=== PATIENT | male | born 1960 | race Caucasian/White ===

== ENCOUNTER 2021-06-22 19:35 | Inpatient (IN) | payer OTHER ==
[2021-06-23 01:52] VITALS: BMI 27.1
[2021-06-23] MEDS ORDERED: MAGNESIUM CITRATE 300 ML BOTTLE PO PRN (02:36)
[2021-06-23] MEDS ORDERED: MAG HYDROX/AL HYDROX/SIMETH 30 ML UNIT-DOSE CUP PO PRN (02:36)
[2021-06-23] MEDS ORDERED: diazePAM 5 MG TABLET PO ONE (02:36)
[2021-06-23] MEDS ORDERED: NICOTINE POLACRILEX 4 MG GUM BUC PRN (02:36)
[2021-06-23] MEDS ORDERED: MAGNESIUM HYDROX 2400MG/30ML ORAL SUSPENSION 30 ML CUP PO PRN (02:36)
[2021-06-23] MEDS ORDERED: ACETAMINOPHEN 325 MG TABLET (FP) PO PRN ×2 (02:36)
[2021-06-23] MEDS ORDERED: NICOTINE 10 MG CARTRIDGE (INHALER) IH PRN (02:36)
[2021-06-23] MEDS ORDERED: ONDANSETRON *ODT* 4 MG TABLET SL PRN (02:36)
[2021-06-23] MEDS ORDERED: IBUPROFEN 400 MG TABLET (FP) PO PRN (02:36)
[2021-06-23] MEDS ORDERED: MENTHOL/PHENOL 1 EACH UD MM PRN (02:36)
[2021-06-23] MEDS ORDERED: BISMUTH SUBSALICYLATE 524 MG/30 ML PO PRN (02:36)
[2021-06-23] MEDS ORDERED: hydrOXYzine PAMOATE 25 MG CAPSULE (FP) PO ONE (06:21)
[2021-06-23] MEDS: hydrOXYzine PAMOATE 25 MG CAPSULE (FP) PO SCH ×5 (06:25→22:16)
[2021-06-23] MEDS ORDERED: IBUPROFEN 400 MG TABLET (FP) PO ONE (10:14)
[2021-06-23] MEDS: LISINOPRIL 10 MG TABLET PO SCH (10:50)
[2021-06-23] MEDS: diazePAM 5 MG TABLET PO PRN (10:50)
[2021-06-23] MEDS: METHOCARBAMOL 500 MG TABLET PO PRN (10:50)
[2021-06-23] MEDS: PRENATAL VITAMINS W/ FOLIC ACID TABLET (FP) PO SCH (10:51)
[2021-06-23] MEDS: NICOTINE 21 MG/24 HOURS TOPICAL PATCH TD SCH (10:56)
[2021-06-23 11:11] LABS: HEMATOCRIT 39.3 % (35.4-49); HEMOGLOBIN 13.4 GM/dL (11.7-16.9); MCHC 34.2 g/dl (32.0-35.9); MEAN CELL VOLUME 87.7 fl (80-96); MEAN PLT VOLUME 7.6 fl (7.5-11.1); PLATELET COUNT 346 10^3/uL (134-434); RBC 4.48 M/mm3 (4.00-5.60); WHITE BLOOD COUNT 4.8 K/mm3 (4.0-10.0)
[2021-06-23 11:19] LABS: ALBUMIN 3.3 g/dl (3.4-5.0); BLOOD UREA NITROGEN 4.8 mg/dL (7-18)
[2021-06-23 11:21] LABS: CALCIUM 8.7 mg/dL (8.5-10.1); TOT PROT 6.3 g/dl (6.4-8.2)
[2021-06-23 11:22] LABS: CREATININE 0.8 mg/dL (0.55-1.3)
[2021-06-23] MEDS ORDERED: MELATONIN 5 MG TABLETS PO SCH (22:00)
[2021-06-23] MEDS: diazePAM 5 MG TABLET PO SCH (22:16)
[2021-06-23] MEDS: THIAMINE HCL 100 MG TABLET (FP) PO SCH (22:16)
[2021-06-23] MEDS: SUVOREXANT 10 MG TABLET PO PRN (22:22)
[2021-06-24] MEDS: hydrOXYzine PAMOATE 25 MG CAPSULE (FP) PO SCH ×5 (06:00→22:08)
[2021-06-24] MEDS: diazePAM 5 MG TABLET PO SCH ×4 (06:00→22:08)
[2021-06-24] MEDS: BACITRACIN 0.9 GM PACKET TP SCH ×2 (10:09→22:09)
[2021-06-24] MEDS: LISINOPRIL 10 MG TABLET PO SCH (10:10)
[2021-06-24] MEDS: NICOTINE 21 MG/24 HOURS TOPICAL PATCH TD SCH (10:10)
[2021-06-24] MEDS: PRENATAL VITAMINS W/ FOLIC ACID TABLET (FP) PO SCH (10:10)
[2021-06-24] MEDS: THIAMINE HCL 100 MG TABLET (FP) PO SCH (22:08)
[2021-06-24] MEDS: METHOCARBAMOL 500 MG TABLET PO PRN (22:08)
[2021-06-24] MEDS: SUVOREXANT 10 MG TABLET PO PRN (22:09)
[2021-06-25] MEDS: diazePAM 5 MG TABLET PO SCH ×3 (05:52→22:18)
[2021-06-25] MEDS: hydrOXYzine PAMOATE 25 MG CAPSULE (FP) PO SCH ×5 (05:52→22:17)
[2021-06-25] MEDS: LISINOPRIL 10 MG TABLET PO SCH (09:39)
[2021-06-25] MEDS: BACITRACIN 0.9 GM PACKET TP SCH ×2 (09:40→22:17)
[2021-06-25] MEDS: NICOTINE 21 MG/24 HOURS TOPICAL PATCH TD SCH ×2 (09:40→09:43)
[2021-06-25] MEDS: PRENATAL VITAMINS W/ FOLIC ACID TABLET (FP) PO SCH (09:40)
[2021-06-25] MEDS: diazePAM 5 MG TABLET PO PRN (09:40)
[2021-06-25] MEDS: SUVOREXANT 10 MG TABLET PO PRN (22:17)
[2021-06-25] MEDS: THIAMINE HCL 100 MG TABLET (FP) PO SCH (22:17)
[2021-06-26] MEDS: hydrOXYzine PAMOATE 25 MG CAPSULE (FP) PO SCH ×5 (05:19→22:11)
[2021-06-26] MEDS: diazePAM 5 MG TABLET PO SCH ×2 (05:19→17:43)
[2021-06-26] MEDS: METHOCARBAMOL 500 MG TABLET PO PRN (10:36)
[2021-06-26] MEDS: PRENATAL VITAMINS W/ FOLIC ACID TABLET (FP) PO SCH (10:36)
[2021-06-26] MEDS: BACITRACIN 0.9 GM PACKET TP SCH ×2 (10:36→22:11)
[2021-06-26] MEDS: NICOTINE 21 MG/24 HOURS TOPICAL PATCH TD SCH (10:37)
[2021-06-26] MEDS: LISINOPRIL 10 MG TABLET PO SCH (10:37)
[2021-06-26 21:21] VITALS: TEMP 97.8
[2021-06-26] MEDS: THIAMINE HCL 100 MG TABLET (FP) PO SCH (22:10)
[2021-06-26] MEDS: SUVOREXANT 10 MG TABLET PO PRN (22:13)
[2021-06-27] MEDS ORDERED: diazePAM 5 MG TABLET PO ONE (06:00)
[2021-06-27] MEDS: hydrOXYzine PAMOATE 25 MG CAPSULE (FP) PO SCH (06:15)
[2021-06-27 07:22] VITALS: BP 96/62; PULSE 96
[2021-06-27] MEDS: NICOTINE 21 MG/24 HOURS TOPICAL PATCH TD SCH (09:13)
[2021-06-27] MEDS: BACITRACIN 0.9 GM PACKET TP SCH (09:15)
[2021-06-27] MEDS: LISINOPRIL 10 MG TABLET PO SCH (09:15)
== END 2021-06-27 09:49 | disposition home or self-care (01) | DRG 897 ==
LOC: YASAS 19:35 → Y6N 06-23 09:04
PROVIDERS: ADMIT Allergy & Immunology; ATTEND Allergy & Immunology
PROC: HZ2ZZZZ Detoxification Services for Substance Abuse Treatment (ICD-10-PCS; principal; 2021-06-23)
DX: F10.230 Alcohol dependence with withdrawal, uncomplicated (principal); F19.282 Other psychoactive substance dependence with psychoactive substance-induced sleep disorder; F17.210 Nicotine dependence, cigarettes, uncomplicated; F19.24 Other psychoactive substance dependence with psychoactive substance-induced mood disorder; I10 Essential (primary) hypertension; Z87.820 Personal history of traumatic brain injury; Z98.84 Bariatric surgery status; Z88.8 Allergy status to other drugs, medicaments and biological substances; Z86.69 Personal history of other diseases of the nervous system and sense organs
CPT/HCPCS: 36415; 80053; 85027; 86780; 93005; 93010; C9803; U0003; U0005

== ENCOUNTER 2025-06-28 21:47 | Inpatient (IN) | payer OTHER ==
[2025-06-28 22:08] VITALS: BMI 25.0
[2025-06-28] MEDS ORDERED: ACETAMINOPHEN 325 MG TABLET (FP) PO PRN (22:55)
[2025-06-28] MEDS ORDERED: NALOXONE (NARCAN) HCL 4 MG/0.1 ML SPRAY NS PRN (22:55)
[2025-06-28] MEDS ORDERED: MAG HYDROX/AL HYDROX/SIMETH 30 ML UNIT-DOSE CUP PO PRN (22:55)
[2025-06-28] MEDS ORDERED: guaiFENesin 600 MG TABLET.ER (FP) PO PRN (22:55)
[2025-06-28] MEDS ORDERED: LOPERAMIDE HCL 2 MG CAPSULE PO PRN (22:55)
[2025-06-28] MEDS ORDERED: NICOTINE POLACRILEX 2 MG GUM BUC PRN (22:55)
[2025-06-28] MEDS ORDERED: ONDANSETRON *ODT* 4 MG TABLET SL PRN (22:55)
[2025-06-28] MEDS ORDERED: POLYETHYLENE GLYCOL (HEALTHYLAX) 3350 17 GM PACKET PO PRN (22:55)
[2025-06-28] MEDS ORDERED: DICYCLOMINE HCL 10 MG CAPSULE PO PRN (22:55)
[2025-06-28] MEDS ORDERED: IBUPROFEN 400 MG TABLET (FP) PO PRN (22:55)
[2025-06-28] MEDS ORDERED: BENZONATATE 200 MG CAPSULE PO PRN (22:55)
[2025-06-28] MEDS ORDERED: BISMUTH SUBSALICYLATE 524 MG/30 ML PO PRN (22:55)
[2025-06-28] MEDS ORDERED: BENZOCAINE/MENTHOL (CHLORASEPTIC ) LOZENGE MM PRN (22:55)
[2025-06-28] MEDS ORDERED: MAGNESIUM HYDROX 2400MG/30ML ORAL SUSPENSION 30 ML CUP PO PRN (22:55)
[2025-06-28] MEDS: IBUPROFEN 600 MG TABLET (FP) PO PRN (23:15)
[2025-06-28] MEDS ORDERED: IBUPROFEN 600 MG TABLET (FP) PO ONE (23:18)
[2025-06-29 09:43] LABS: MCHC 31.3 g/dl (32.3-36.5); MEAN CELL VOLUME 79.1 fl (79.0-92.2); MEAN PLT VOLUME 9.7 fl (9.4-12.4); RDW 15.9 % (12.2-16.4)
[2025-06-29] MEDS: PRENATAL VITAMINS W/ FOLIC ACID TABLET (FP) PO SCH (10:12)
[2025-06-29] MEDS: NICOTINE 14 MG/24 HOURS TOPICAL PATCH TD SCH (10:12)
[2025-06-29 10:13] LABS: GLUCOSE,RANDOM 87.0 mg/dL (74-106); TOT PROT 6.3 g/dl (6.4-8.2)
[2025-06-29 10:14] LABS: CO2 25.0 mmol/L (21-32)
[2025-06-29 10:16] LABS: ALK PHOS 96.0 U/L (40-150)
[2025-06-29 10:18] LABS: SGOT/AST 29.0 U/L (5-34); SGPT/ALT 15.0 U/L (0-55)
[2025-06-29 10:19] LABS: CREATININE 0.74 mg/dL (0.55-1.3)
[2025-06-29] MEDS: hydrOXYzine PAMOATE 25 MG CAPSULE (FP) PO PRN (13:22)
[2025-06-29] MEDS: MELATONIN 5 MG TABLETS PO SCH (22:29)
[2025-06-29] MEDS: THIAMINE 100 MG TABLET PO SCH (22:29)
[2025-07-02 07:06] VITALS: RESP 17
[2025-07-02 08:54] VITALS: BP 137/87; PULSE 79; TEMP 98
== END 2025-07-02 10:04 | disposition home or self-care (01) | DRG 897 ==
LOC: YASAS 21:47 → Y6N 23:05
PROVIDERS: ADMIT Neuromusculoskeletal Medicine & OMM; ATTEND Student in an Organized Health Care Education/Training Program
PROC: HZ2ZZZZ Detoxification Services for Substance Abuse Treatment (ICD-10-PCS; principal; 2025-06-28)
DX: F10.230 Alcohol dependence with withdrawal, uncomplicated (principal); F33.1 Major depressive disorder, recurrent, moderate; F17.210 Nicotine dependence, cigarettes, uncomplicated; F10.282 Alcohol dependence with alcohol-induced sleep disorder; F10.280 Alcohol dependence with alcohol-induced anxiety disorder; F10.24 Alcohol dependence with alcohol-induced mood disorder; F19.24 Other psychoactive substance dependence with psychoactive substance-induced mood disorder; F43.10 Post-traumatic stress disorder, unspecified; I10 Essential (primary) hypertension; M19.011 Primary osteoarthritis, right shoulder; N40.0 Benign prostatic hyperplasia without lower urinary tract symptoms
CPT/HCPCS: 36415; 80053; 85027; 86780; 86803; 93005; 93010